=== PATIENT | male | born 1985 | race Caucasian/White ===

== ENCOUNTER 2022-10-21 10:07 | Outpatient (CLI) | payer OTHER | END 2022-10-21 10:08 | disposition home or self-care (01) | LOC: TBSIIMAG 10:07 | PROVIDERS: ATTEND Orthopaedic Surgery | DX: M23.91 Unspecified internal derangement of right knee (principal) ==

== ENCOUNTER 2023-01-13 05:47 | Day surgery (SDC) | payer OTHER ==
[2023-01-10 11:48] VITALS: BMI 31.5
[2023-01-13 06:37] LABS: #Basophils 0.1 thou/uL (0.0-0.2); #Eosinphils 0.2 thou/uL (0.0-0.7); #Monocytes 0.9 thou/uL (0.11-0.59); #Neutrophils 4.9 thou/uL (1.40-6.50); %Basophils 0.6 % (0.0-1.0); %Eosinophils 2.9 % (0.0-10.0); %Lymphocytes 27.4 % (21.0-51.0); %Monocytes 10.3 % (0.0-10.0); %Neutrophils 58.6 % (42.0-75.0); Hemoglobin 14.4 g/dL (14.0-18.0); Mean Corpuscular HGB CONC 34.9 g/dL (32.0-36.0); Mean Corpuscular Volume 83.3 fl (78.0-98.0); Platelet Count 235 10x3/uL (130-400); RBC Distribution Width 12.5 % (11.5-14.5); Red Blood Cell (RBC) Count 4.96 mill/uL (4.70-6.10); White Blood Cell (WBC) Count 8.4 10x3/uL (4.8-10.8)
[2023-01-13] MEDS ORDERED: Bupivacaine PF 0.5% 30 ML VIAL ONE (06:50)
[2023-01-13] MEDS ORDERED: Lidocaine 2% PF 5 ML VIAL ONE (06:50)
[2023-01-13] MEDS ORDERED: EPINEPHrine 1 MG/ML AMP ONE (06:50)
[2023-01-13] MEDS ORDERED: Propofol 500 MG/50 ML VIAL ONE (06:50)
[2023-01-13] MEDS ORDERED: PROPOFOL 20 ML ONE (06:51)
[2023-01-13] MEDS ORDERED: Sodium Chloride 0.9% 100 ML ONE (07:21)
[2023-01-13] MEDS ORDERED: CEFAZOLIN 2 GM VIAL ONE (07:21)
[2023-01-13] MEDS ORDERED: Ondansetron PF 4 MG/2 ML Vial ONE (07:38)
[2023-01-13] MEDS ORDERED: Lidocaine 1% PF 5 ML VIAL ONE (07:38)
[2023-01-13] MEDS ORDERED: PROPOFOL 200 MG/20 ML VIAL ONE (07:38)
[2023-01-13] MEDS ORDERED: Ketorolac Tromethamine 30 MG/ML VIAL ONE (07:38)
== END 2023-01-13 10:05 | disposition home or self-care (01) ==
LOC: SDC 05:47
PROVIDERS: ATTEND Orthopaedic Surgery
PROC: 0SU Lower Joints, Supplement (ICD-10-PCS; principal; 2023-01-13)
PROC: 0SBC4ZZ Excision of Right Knee Joint, Percutaneous Endoscopic Approach (ICD-10-PCS; principal; 2023-01-13)
DX: M23.8X1 Other internal derangements of right knee (principal); F41.9 Anxiety disorder, unspecified; Z79.899 Other long term (current) drug therapy; Z90.49 Acquired absence of other specified parts of digestive tract
CPT/HCPCS: 85025; J0171; J1885; J2001; J2405; J2704; J3490; S0020

== ENCOUNTER 2024-06-13 11:11 | Outpatient (CLI) | payer BC | END 2024-06-13 11:12 | disposition home or self-care (01) | LOC: SCSMRI 11:11 | PROVIDERS: ATTEND Orthopaedic Surgery | DX: M23.91 Unspecified internal derangement of right knee (principal); M22.2X1 Patellofemoral disorders, right knee; M25.461 Effusion, right knee ==

== ENCOUNTER 2024-07-10 09:01 | Day surgery (SDC) | payer BC ==
[2024-07-10 09:14] VITALS: BMI 31.5
[2024-07-10] MEDS ORDERED: Vancomycin (BATCH) 1.5 GM/300 ML BAG ONE (10:27)
[2024-07-10] MEDS ORDERED: CEFAZOLIN 2 GM VIAL ONE (10:27)
[2024-07-10] MEDS ORDERED: Lidocaine 1% MPF 2 ML VIAL ONE (10:27)
[2024-07-10] MEDS ORDERED: Midazolam HCl 2 mg/2 ml Vial ONE (10:35)
[2024-07-10] MEDS ORDERED: fentaNYL 50 mcg/mL 1 mL Vial ONE ×3 (10:35→13:35)
[2024-07-10] MEDS ORDERED: Bupivacaine PF 0.5% 30 ML VIAL ONE (10:35)
[2024-07-10 10:45] LABS: #Basophils 0.03 10x3/uL (0.0-0.2); %Basophils 0.6 % (0.0-1.0); %Eosinophils 4.1 % (0.0-10.0); %Lymphocytes 31.4 % (21.0-51.0); %Monocytes 11.6 % (0.0-10.0); %Neutrophils 52.1 % (42.0-75.0); Hematocrit 40.5 % (42.0-52.0); Hemoglobin 14.3 g/dL (14.0-18.0); Mean Corpuscular HGB CONC 35.3 g/dL (32.0-36.0); Mean Corpuscular Hemoglobin 28.5 pg (27.0-31.0); Mean Corpuscular Volume 80.8 fL (78.0-98.0); Mean Platelet Volume 8.8 fL (7.4-10.4); Platelet Count 207 10x3/uL (130-400); RBC Distribution Width 12.3 % (11.5-14.5); Red Blood Cell (RBC) Count 5.01 mill/uL (4.70-6.10)
[2024-07-10] MEDS ORDERED: PROPOFOL 40 ML ONE (11:00)
[2024-07-10] MEDS ORDERED: Lidocaine 2% PF 5 ML VIAL ONE (11:02)
[2024-07-10] MEDS ORDERED: fentaNYL PF 100 MCG/2 ML SYRINGE ONE (11:02)
[2024-07-10] MEDS ORDERED: Lidocaine 1% (PF) 30 ML VIAL ONE (11:05)
[2024-07-10] MEDS ORDERED: Dexamethasone 20 MG/5 ML VIAL ONE (11:40)
[2024-07-10] MEDS ORDERED: ePHEDrine Sulfate 50 MG/10 ML VIAL ONE (11:42)
[2024-07-10] MEDS ORDERED: PHENYLEPHRINE-NS 100 MCG/ML 10 ML SYRINGE ONE (11:47)
[2024-07-10] MEDS ORDERED: fentaNYL 50 mcg/mL 1 mL Vial SLOW IVP PRN (12:30)
[2024-07-10] MEDS ORDERED: traMADol HCl 50 MG TAB PO PRN ×2 (12:30)
[2024-07-10] MEDS ORDERED: Promethazine HCl 25 MG/ML VIAL IM PRN (12:30)
[2024-07-10] MEDS ORDERED: Ondansetron PF 4 MG/2 ML Vial IVP PRN (12:30)
[2024-07-10] MEDS ORDERED: HYDROcodone/Acetaminophen 10/325 mg Tablet PO PRN ×2 (12:30)
[2024-07-10] MEDS ORDERED: Zolpidem Tartrate 5 MG TAB PO PRN (12:30)
[2024-07-10] MEDS ORDERED: Ropivacaine 0.2% 550 ML 550 ML NERVE BLCK SCH (12:30)
[2024-07-10] MEDS ORDERED: Ondansetron PF 4 MG/2 ML Vial ONE (12:41)
[2024-07-10] MEDS ORDERED: Ketorolac Tromethamine 30 MG (1 mL) VIAL ONE (13:35)
[2024-07-10] MEDS ORDERED: HYDROcodone/Acetaminophen 5/325 mg Tablet ONE (14:03)
[2024-07-10] MEDS ORDERED: Ketorolac Tromethamine 30 MG (1 mL) VIAL IVP SCH (18:00)
== END 2024-07-10 15:13 | disposition home or self-care (01) ==
LOC: SDC 09:01
PROVIDERS: ATTEND Orthopaedic Surgery
PROC: 0SBC4ZZ Excision of Right Knee Joint, Percutaneous Endoscopic Approach (ICD-10-PCS; principal; 2024-07-10)
PROC: 0SUC0KZ Supplement Right Knee Joint with Nonautologous Tissue Substitute, Open Approach (ICD-10-PCS; principal; 2024-07-10)
PROC: 3E0T3BZ Introduction of Anesthetic Agent into Peripheral Nerves and Plexi, Percutaneous Approach (ICD-10-PCS; principal; 2024-07-10)
DX: M23.41 Loose body in knee, right knee (principal); M23.91 Unspecified internal derangement of right knee; M17.11 Unilateral primary osteoarthritis, right knee; F41.9 Anxiety disorder, unspecified; Z90.49 Acquired absence of other specified parts of digestive tract; Z98.890 Other specified postprocedural states; Z79.899 Other long term (current) drug therapy
CPT/HCPCS: 85025; A4306; C1713; C1776; J0665; J1100; J1885; J2250; J2405; J2704; J2795; J3010; J3370